=== PATIENT | female | born 1945 | race Caucasian/White ===

== ENCOUNTER 2021-09-29 13:55 | Outpatient (CLI) | payer MEDICARE, SELFPAY ==
--- NOTE | 2021-09-29 14:05 | MM_ITS ---
WS: [id number] BILATERAL 3D TOMOSYNTHESIS DIGITAL SCREENING MAMMOGRAPHY WITH CAD CLINICAL INFORMATION: SCREEN HISTORY: Screening mammogram. No current complaints. COMPARISON: November 12, 2009 TECHNIQUE: Bilateral CC and MLO views. FINDINGS: The breasts are composed of heterogeneous fibroglandular density tissue, which can limit the detectio n of small underlying mass lesions. Vascular calcification. Punctate and lucent centered calcificatio ns. No suspicious mass, asymmetry, calcifications, or architectural distortion. No evidence of malign beth. MM/[place] [id number] IMPRESSION: BI-RADS: 2-Benign FOLLOW UP: 1 Year Follow-up Recommend return to annual screening mammography.
== END 2021-09-29 13:56 | disposition home or self-care (01) ==
PROVIDERS: Visit Provider Family Medicine
DX: Z12.31 Encounter for screening mammogram for malignant neoplasm of breast (principal)
CPT/HCPCS: 77063; 77067

== ENCOUNTER 2023-10-17 15:29 | Emergency (ER) | payer MEDICARE, SELFPAY ==
[2023-10-17 15:59] VITALS: BP 161/80; PULSE 62; RESP 16; TEMP 36.6; O2SAT 97; BMI 19.3
[2023-10-17 18:25] VITALS: BP 186/88; PULSE 66; RESP 18; O2SAT 100
--- NOTE | 2023-10-17 18:31 | XRR_ITS ---
PROCEDURE INFORMATION: Exam: XR Lumbosacral Spine Exam date and time: 10/17/2023 7:11 PM Age: 78 years old Clinical indication: Injury or trauma; Fall; Other: Pain; Additional info: Fall back pain TECHNIQUE: Imaging protocol: Radiologic exam of the lumbosacral spine. Views: 2 or 3 views. COMPARISON: 1. CR XR lumbar spine min 4V [id number] 08/17/2023 10:[address] lumbar spine wo con* [id number] 10/17/2023 8:20 PM FINDINGS: Bones/joints: Moderate left convex scoliosis. Multilevel degenerative changes with L3-S1 vacuum cleft disc spaces. No acute displaced fracture seen by x-ray. The nondisplaced fractures of the left L1-L3 transverse processes on the comparison CT are not well seen. Soft tissues: Unremarkable. XR/XR lumbar spine 2-3V* [id number] IMPRESSION: The nondisplaced fractures of the left L1-L3 transverse processes on CT are not well seen by x-ray. No additional fracture identified.
--- NOTE | 2023-10-17 18:31 | XRR_ITS ---
PROCEDURE INFORMATION: Exam: XR Sacrum and Coccyx, 2 or More Views Exam date and time: 10/17/2023 7:14 PM Age: 78 years old Clinical indication: Injury or trauma; Fall; Other: Pain TECHNIQUE: Imaging protocol: XR of the sacrum and coccyx, 2 or more views. COMPARISON: CR (PELVIS, ) 10/17/2023 7:11 PM FINDINGS: Bones/joints: Lower lumbar spinal degenerative changes. No acute appearing displaced fracture. Soft tissues: Normal. XR/XR sacrum coccyx min 2V [id number] IMPRESSION: No acute findings.
--- NOTE | 2023-10-17 18:31 | XRR_ITS ---
PROCEDURE INFORMATION: Exam: XR Left Hip Exam date and time: 10/17/2023 7:24 PM Age: 78 years old Clinical indication: Injury or trauma; Fall; Other: Pain; Additional info: Fall, lt sided hip pain TECHNIQUE: Imaging protocol: Radiologic exam of the left hip. Views: 2 or 3 views hip with pelvis when performed. COMPARISON: CR (PELVIS, ) 10/17/2023 7:14 PM FINDINGS: Bones/joints: Unremarkable. No acute fracture. Soft tissues: Unremarkable. Vasculature: Vascular calcifications. XR/XR hip LT 2-3V wo/w pel* [id number] IMPRESSION: No acute findings.
--- NOTE | 2023-10-17 18:31 | XRR_ITS ---
PROCEDURE INFORMATION: Exam: XR Left Ribs with PA Chest Exam date and time: 10/17/2023 7:29 PM Age: 78 years old Clinical indication: Injury or trauma; Fall; Rib area, left side; Sprain or strain; Additional info: Fall, lt sided rib pain TECHNIQUE: Imaging protocol: Radiologic exam of the left ribs with PA chest. Views: 3 views COMPARISON: No relevant prior studies available. FINDINGS: Lungs: No consolidation. Pleural spaces: No pleural effusion. No definite pneumothorax. Heart/Mediastinum: No cardiomegaly. Bones/joints: The nondisplaced fracture in the medial left 12th rib on the comparison lumbar spine CT is not seen. The bones are again are demineralized in appearance. No definite acute displaced rib fracture identified by x-ray. XR/XR ribs LT mn 3V w CXR1V [id number] IMPRESSION: The nondisplaced fracture in the medial left 12th rib on the comparison lumbar spine CT is not seen. The bones are again are demineralized in appearance. No definite acute displaced rib fracture identified by x-ray.
--- NOTE | 2023-10-17 18:32 | ED_ITS ---
HPI - Back Pain/Injury General: Chief Complaint: Back Pain/Injury Stated Complaint: fall--left leg and hip pain Time Seen by Provider: 10/17/23 18:23 Source: patient Mode of arrival: ambulatory Limitations: no limitations History of Present Illness: 78-year-old female had a fall today at [facility] roughly 3 hours ago. States she had missed a step and fell backwards states she fell on her left side having some left hip pain along with low back and tailbone pain. She has some mild left chest wall pain she rates her pain a 5 out of 10 denies any head or neck injury. Associated symptoms: Deny abdominal pain, chills, fever(s), nausea or vomiting Review of Systems Const: Denies: fever(s), chills, body aches or change in appetite ENMT: Denies: throat pain or dental pain Card: Reports: chest pain Resp: Denies: dyspnea GI: Denies: abdominal pain, nausea, vomiting or diarrhea Musc: Reports: back pain and extremity pain; Denies: neck pain Skin/Breast: Denies: rash Neuro: Denies: headache(s) Physical Exam Const: COMMON NORMALS: no acute distress, patient oriented x3 and healthy appearing HENMT: COMMON NORMALS: normocephalic and atraumatic HEAD & SCALP: normocephalic and atraumatic Eye: COMMON NORMALS: conjunctivae normal CONJUNCTIVA: Yes conjunctivae normal Neck/C-Spine: COMMON NORMALS: full ROM and supple Chest: COMMONS NORMALS: normal inspection of the chest OTHER: mild left chest wall tenderness Resp: COMMON NORMALS: normal respiratory effort Cardio: COMMON NORMALS: regular rate RATE: regular rate GI: COMMON NORMALS: Normal to inspection, nondistended, normoactive bowel sounds present, Soft to palpation, non-tender and no masses PALPATION: Yes Soft to palpation Back/Pelvis: OTHER: Left lower lumbar tenderness tenderness over tailbone Extremity: COMMON NORMALS: full ROM NARRATIVE EXTREMITY EXAM: Slight tenderness to left hip patient is able to ambulate. Neuro: COMMON NORMALS: patient oriented x3, moves all extremities and no focal motor deficits Psych: COMMON NORMALS: mental status grossly normal, Normal thought process present and cooperative THOUGHT PROCESS: Normal thought process present Skin: COMMON NORMALS: no rashes or lesions noted and no wounds GENERAL SKIN EXAM: no rashes or lesions noted Course Vital Signs: Vital signs: Vital Signs Temperature 97.8 F 10/17/23 15:59 Pulse Rate 66 10/17/23 18:25 Respiratory Rate 16 10/17/23 20:42 Blood Pressure 186/88 10/17/23 18:25 Pulse Oximetry 92 10/17/23 20:42 Oxygen Delivery Me thod Room Air 10/17/23 18:25 MDM - Back Pain/Injury Medical Decision Making Patient presents here with rib fracture along with transverse process fracture from a fall no other injuries noted she did not hit her head we will prescribe her pain meds we will get her follow-up with Dr. Alfaro she is to return if worsening she understands agrees to plan. Medical Records I reviewed the patient's medical records. Labs Radiology Impressions Hip/Pelvis X-Ray 10/17/23 18:31 IMPRESSION: No acute findings. Lumbar Spine X-Ray 10/17/23 18:31 IMPRESSION: The nondisplaced fractures of the left L1-L3 transverse processes on CT are not well seen by x-ray. No additional fracture identified. Ribs X-Ray 10/17/23 18:31 IMPRESSION: The nondisplaced fracture in the medial left 12th rib on the comparison lumbar spine CT is not seen. The bones are again are demineralized in appearance. No definite acute displaced rib fracture identified by x-ray. Sacrum and Coccyx X-Ray 10/17/23 18:31 IMPRESSION: No acute findings. Lumbar Spine CT 10/17/23 20:09 IMPRESSION: Nondisplaced fractures of the left L1-L3 transverse processes and the medial left 12th rib. All radiology interpretation(s) finalized by discharge Discharge Plan Discharge Patient Disposition: Home Clinical Impression: Fall Qualifiers: Encounter type: initial encounter Qualified Code(s): W19.XXXA - Unspecified fall, initial encounter Closed rib fracture Qualifiers: Encounter type: initial encounter Rib fracture type: single rib Laterality: left Qualified Code(s): S22.32XA - Fracture of one rib, left side, initial encounter for closed fracture Closed fracture of transverse process of lumbar vertebra Qualifiers: Encounter type: initial encounter Qualified Code(s): S32.009A - Unspecified fracture of unspecified lumbar vertebra, initial encounter for closed fracture Condition: Stable Prescriptions: New hydrocodone-acetaminophen 5-325 mg tablet 1 tab PO Q6H PRN (Reason: pain) Qty: 14 0RF Discharge Orders: Discharge ED (Routine); Ordered 10/17/23 Ordered By: Miller Rudd Referrals: Stefano Alfaro DO [Physician] - 1-3 days Christofer Perea MD [Primary Care Provider] - Discharge Diet: Advance as tolerated Discharge Activity: Resume usual activity Patient Instructions: Rib Fracture (ED), Transverse Process Fracture (ED), Opioid Safety Coding Level of Care Code ED [employer] Program Manager for Neville Barraza
[2023-10-17] MEDS: HYDROcodone-acetaminophen 5-325 mg Tablet 1 TAB PO (19:00)
--- NOTE | 2023-10-17 20:09 | CTR_ITS ---
PROCEDURE INFORMATION: Exam: CT Lumbar Spine Without Contrast Exam date and time: 10/17/2023 8:20 PM Age: 78 years old Clinical indication: Injury or trauma; Fall; Blunt trauma (contusions or hematomas); Patient HX: Patient fell backwards onto back at home. C/O severe left sided low back pain. TECHNIQUE: Imaging protocol: Computed tomography of the lumbar spine without contrast. Radiation optimization: All CT scans at this facility use at least one of these dose optimization techniques: automated exposure control; mA and/or kV adjustment per patient size (includes targeted exams where dose is matched to clinical indication); or iterative reconstruction. COMPARISON: CR (PELVIS, ) 10/17/2023 7:11 PM RADIATION DOSE METRICS: Total DLP (mGy-cm): 398.82 FINDINGS: Bones/joints: There is mild left convex scoliosis. The bones are diffusely demineralized. Multilevel degenerative disc disease is seen with vacuum cleft phenomenon. There is severe stenosis of the spinal canal at L3-S1. There is a nondisplaced fracture of the medial left 12th rib. There is a nondisplaced fracture of the left L1- L3 transverse processes. Spleen: Splenic granulomata. Adrenal glands: Thickening of the adrenal glands likely adenomatous hyperplasia. Soft tissues: Unremarkable. CT/CT lumbar spine wo con* [id number] IMPRESSION: Nondisplaced fractures of the left L1-L3 transverse processes and the medial left 12th rib.
[2023-10-17 20:42] VITALS: RESP 16; O2SAT 92
[2023-10-17] MEDS: ondansetron 2 mg/ML SDV 2 mL 4 MG IM (20:42)
[2023-10-17] MEDS: morphine 4 mg/mL SDV 1 mL IM (20:42)
--- NOTE | 2023-10-17 21:05 | PC.NURSE ---
Pt sent home with CIDCO x2 tabs per Dr Rudd's orders.
--- NOTE | 2023-10-18 14:38 | DCPLANNER ---
messaged ortho for er f/u
== END 2023-10-17 21:10 | disposition home or self-care (01) ==
PROVIDERS: Emergency Provider Emergency Medicine
DX: S22.32XA Fracture of one rib, left side, initial encounter for closed fracture (principal); S32.009A Unspecified fracture of unspecified lumbar vertebra, initial encounter for closed fracture; W19.XXXA Unspecified fall, initial encounter
CPT/HCPCS: 71101; 72100; 72131; 72220; 73502; 96372; 99284; J2270; J2405